=== PATIENT | female | born 1980 | race Caucasian/White ===

== ENCOUNTER 2023-12-12 09:11 | Day surgery (SDC) | payer OTHER ==
[~2023-12-12] VITALS: Ht 152.4 cm; Wt 81.2 kg
[2023-12-12] MEDS ORDERED: fentaNYL citrate 0.05 MG/ML VIAL ONE (10:52)
[2023-12-12] MEDS: fentaNYL citrate 0.05 MG/ML VIAL IVP ONE (10:59)
== END 2023-12-12 12:37 | disposition home or self-care (01) ==
LOC: MDS 09:11 → MMU 09:30 → MDS 12:37
PROVIDERS: ATTEND Internal Medicine Gastroenterology
DX: K62.5 Hemorrhage of anus and rectum (principal); K75.81 Nonalcoholic steatohepatitis (NASH); R14.0 Abdominal distension (gaseous); F32.A Depression, unspecified; J45.909 Unspecified asthma, uncomplicated; M19.90 Unspecified osteoarthritis, unspecified site; E78.5 Hyperlipidemia, unspecified; Z79.899 Other long term (current) drug therapy
CPT/HCPCS: 45378; J3010